=== PATIENT | male | born 1995 | race Two or more races ===

== ENCOUNTER 2020-10-29 13:41 | Outpatient (CLI) | payer OTHER | END 2020-10-29 14:20 | disposition home or self-care (01) | LOC: OFIC 805 13:41 | PROVIDERS: ATTEND Otolaryngology Otology & Neurotology | DX: J01.80 Other acute sinusitis (principal); J32.0 Chronic maxillary sinusitis; J34.2 Deviated nasal septum; R09.81 Nasal congestion; H69.83 Other specified disorders of Eustachian tube, bilateral ==

== ENCOUNTER 2021-01-21 14:01 | Outpatient (CLI) | payer OTHER | END 2021-01-21 15:28 | disposition home or self-care (01) | LOC: OFIC 805 14:01 | PROVIDERS: ATTEND Otolaryngology Otology & Neurotology | DX: J01.80 Other acute sinusitis (principal); H61.23 Impacted cerumen, bilateral; H69.83 Other specified disorders of Eustachian tube, bilateral; R09.81 Nasal congestion; J34.2 Deviated nasal septum ==